=== PATIENT | male | born 1955 | race Caucasian/White ===

== ENCOUNTER 2023-03-06 13:12 | Emergency (ER) | payer SELFPAY ==
[~2023-03-06] VITALS: Ht 185.4 cm; Wt 82.1 kg
[2023-03-06] MEDS ORDERED: CYCL5TAB PO (14:22)
[2023-03-06] MEDS ORDERED: LIDO30AD10 TP (14:22)
[2023-03-06] MEDS ORDERED: IBUP-1957 PO (14:22)
[2023-03-06] MEDS ORDERED: IBUPROFEN 400 MG TABLET PO ONE (14:30)
[2023-03-06] MEDS ORDERED: CYCLOBENZAPRINE 10 MG TABLET PO ONE (14:30)
[2023-03-06] MEDS ORDERED: CYCLOBENZAPRINE 10 MG TABLET ONE (14:31)
[2023-03-06] MEDS ORDERED: IBUPROFEN 400 MG TABLET ONE ×2 (14:32→14:33)
[2023-03-06 14:46] VITALS: BP 101/67; TEMP 98.7; O2SAT 100
== END 2023-03-06 14:40 | disposition home or self-care (01) ==
LOC: ER 13:12
DX: S33.5XXA Sprain of ligaments of lumbar spine, initial encounter (principal); X58.XXXA Exposure to other specified factors, initial encounter; Y93.89 Activity, other specified; Y92.89 Other specified places as the place of occurrence of the external cause; Y99.8 Other external cause status